=== PATIENT | female | born 1985 | race Caucasian/White ===

== ENCOUNTER 2021-06-27 19:07 | Emergency (ER) | payer OTHER ==
[~2021-06-27 19:07] MED LIST: ANTIVERT 12.512.5 MG PO; ANTIVERT 25MG T25 MG PO; DOC-Q-LACE100 MG PO; FEOSOL325 MG PO; IBUPROFEN600 MG PO; NORCO 5-325 TA1 EACH PO; PRENATAL VITAM1 EAC8 PO; PRILOSEC OTC20 MG PO; ZOFRAN ODT 4 MG4 MG PO
[2021-06-27 21:07] LABS: BUN/CREATININE RATIO 14 (0-10)
[2021-06-27 21:15] LABS: HEMOGLOBIN 12.5 gm/dl (12.3-15.3); RED BLOOD COUNT 4.13 M/UL (4.00-5.10)
== END 2021-06-28 01:26 | disposition home or self-care (01) ==
LOC: ER1 19:07
PROVIDERS: Physician Assistant
DX: R10.9 Unspecified abdominal pain (principal); F17.210 Nicotine dependence, cigarettes, uncomplicated
CPT/HCPCS: 80053; 81001; 83690; 85025; 87086; 96374; 99284; J1885

== ENCOUNTER 2022-03-24 13:17 | Emergency (ER) | payer OTHER ==
[2022-03-24 13:50] LABS: HEMOGLOBIN 10.9 gm/dl (12.3-15.3); RED BLOOD COUNT 3.62 M/UL (4.00-5.10); WHITE BLOOD COUNT 11.3 K/UL (4.5-11.0)
[2022-03-24 14:22] LABS: BUN/CREATININE RATIO 26 (0-10)
[2022-03-24 14:58] LABS: HEMOGLOBIN 9.2 gm/dl (12.3-15.3)
== END 2022-03-24 15:50 | disposition other institution (70) ==
LOC: ER1 13:17
PROVIDERS: Emergency Medicine
DX: K92.2 Gastrointestinal hemorrhage, unspecified (principal); D50.0 Iron deficiency anemia secondary to blood loss (chronic); R55 Syncope and collapse; I95.9 Hypotension, unspecified; F17.200 Nicotine dependence, unspecified, uncomplicated
CPT/HCPCS: 36430; 71045; 80053; 81001; 82550; 82553; 84484; 84703; 85014; 85018; 85025; 85610; 85730; 86850; 86900; 86901; 86920; 93005; 96374; 99285; C9113; P9016